=== PATIENT | female | born 1940 | race Caucasian/White ===

== ENCOUNTER → 2017-09-30 | Outpatient (CLI) | payer MEDICARE ==
[~2017-09-30] MED LIST: ASPI-496 PO; ATOR20TA PO; CHOL100015 PO; CLOP75TA52 PO; DIGO125T PO; DOXY100C2 PO; EYE VITAMINS PO; FLUT1BLS INH; FLUT1DIS3 INH; ISOS30TA8 PO; MOME13HF2 INH; NITR0.4T SL; TIOT18CA INH; TIOT4MIS3 INH; TRAM50TA2 PO; [UNRECOGNIZED DRUG - CODE] PO
== END | disposition home or self-care (01) ==
LOC: CVU 08:50
PROVIDERS: ATTEND Internal Medicine Cardiovascular Disease
DX: I70.202 Unspecified atherosclerosis of native arteries of extremities, left leg (principal); I70.203 Unspecified atherosclerosis of native arteries of extremities, bilateral legs; I73.9 Peripheral vascular disease, unspecified
CPT/HCPCS: 93880; 93922; 93925

== ENCOUNTER → 2018-01-26 | Outpatient (CLI) | payer MEDICARE ==
[~2018-01-26] MED LIST changes: +REGADENOSON 0.4 MG/5 ML SYRINGE ONE
== END ==
LOC: RAD 12:11
PROVIDERS: ATTEND Internal Medicine Cardiovascular Disease
DX: I10 Essential (primary) hypertension (principal); J44.9 Chronic obstructive pulmonary disease, unspecified; I73.9 Peripheral vascular disease, unspecified
CPT/HCPCS: 78452; 93017; A9502; J2785

== ENCOUNTER → 2018-02-16 | Outpatient (CLI) | payer MEDICARE ==
[~2018-02-16] MED LIST changes: +OMNIPAQUE 350 MG/ML, 100ML BOTTLE ONE; -REGADENOSON 0.4 MG/5 ML SYRINGE ONE
[2018-02-16 15:36] LABS: BASOPHILS # (AUTO) 0.04 x10^3/uL (0-0.1); BASOPHILS % (AUTO) 1 % (0-1); EOSINOPHILS # (AUTO) 0.09 x10^3/uL (0-0.4); EOSINOPHILS % (AUTO) 1 % (1-7); HCT (SEDRATE) 43.5 % (34.6-47.8); LYMPHOCYTES # (AUTO) 1.49 x10^3/uL (1-3.4); LYMPHOCYTES % (AUTO) 20 % (22-44); MD NO; MEAN CORPUSCULAR HEMOGLOBIN 30.1 pg (27.0-34.8); MEAN CORPUSCULAR HGB CONC 32.3 g/dL (32.4-35.8); MEAN CORPUSCULAR VOLUME 93.2 fL (80-100); MEAN PLATELET VOLUME 9.4 fL (7.4-10.4); MONOCYTES # (AUTO) 0.62 x10^3/uL (0.2-0.8); MONOCYTES % (AUTO) 8 % (2-9); NEUTROPHILS # (AUTO) 5.21 x10^3/uL (1.8-6.8); NEUTROPHILS % (AUTO) 70 % (42-75); PLATELET COUNT 213 x10^3/uL (130-400); RED BLOOD COUNT 4.69 x10^6/uL (3.82-5.3); RED CELL DISTRIBUTION WIDTH 15.5 % (9.6-15.2)
[2018-02-16 15:50] LABS: ALBUMIN 3.6 g/dL (3.4-5.0); ANION GAP 7 mmol/L (5-15); CALCIUM 8.7 mg/dL (8.5-10.1); CHLORIDE 108 mmol/L (98-107)
[2018-02-16 15:53] LABS: ALANINE AMINOTRANSFERASE 36 U/L (12-78); ALKALINE PHOSPHATASE 76 U/L (45-117); BILIRUBIN,TOTAL 0.7 mg/dL (0.2-1.0); C-REACTIVE PROTEIN, QUANT 0.08 mg/dL (0.02-0.49); CREATININE 0.75 mg/dL (0.55-1.02); TOTAL PROTEIN 6.5 g/dL (6.4-8.2)
== END | disposition home or self-care (01) ==
LOC: CFH 12:48
PROVIDERS: ATTEND Ophthalmology
DX: H46.9 Unspecified optic neuritis (principal)
CPT/HCPCS: 36415; 70470; 80053; 82565; 85025; 85651; 86140; Q9967

== ENCOUNTER → 2018-03-02 | Outpatient (CLI) | payer MEDICARE ==
[~2018-03-02] MED LIST changes: -OMNIPAQUE 350 MG/ML, 100ML BOTTLE ONE
== END | disposition home or self-care (01) ==
LOC: CFH 12:40
PROVIDERS: ATTEND Registered Nurse
DX: Z12.2 Encounter for screening for malignant neoplasm of respiratory organs (principal); I25.10 Atherosclerotic heart disease of native coronary artery without angina pectoris; Z87.891 Personal history of nicotine dependence
CPT/HCPCS: G0297

== ENCOUNTER → 2018-05-15 | Outpatient (CLI) | payer MEDICARE ==
[~2018-05-15] MED LIST changes: +ACET325T14 PO; +ALEN70TA3 PO; +CYCL5TAB PO; +LIDO700A20 TD; +OMNIPAQUE 350 MG/ML, 100ML BOTTLE ONE; +RIVA20TA PO; +SENN1TAB8 PO
== END | disposition home or self-care (01) ==
LOC: CFH 14:33
PROVIDERS: ATTEND Ophthalmology
DX: H46.9 Unspecified optic neuritis (principal); I50.9 Heart failure, unspecified; J44.9 Chronic obstructive pulmonary disease, unspecified; Z86.73 Personal history of transient ischemic attack (TIA), and cerebral infarction without residual deficits; Z85.89 Personal history of malignant neoplasm of other organs and systems
CPT/HCPCS: 70470; 82565; Q9967

== ENCOUNTER 2018-07-04 14:05 | Inpatient (IN) | payer MEDICARE ==
[~2018-07-04] VITALS: Ht 154.9 cm; Wt 41.0 kg
[~2018-07-04 14:05] MED LIST changes: -ACET325T14 PO; -ALEN70TA3 PO; -CYCL5TAB PO; -LIDO700A20 TD; -OMNIPAQUE 350 MG/ML, 100ML BOTTLE ONE; -RIVA20TA PO; -SENN1TAB8 PO
[2018-07-04 15:40] LABS: BASOPHILS # (AUTO) 0.09 x10^3/uL (0-0.1); BASOPHILS % (AUTO) 1 % (0-1); EOSINOPHILS # (AUTO) 0.11 x10^3/uL (0-0.4); EOSINOPHILS % (AUTO) 1 % (1-7); LYMPHOCYTES % (AUTO) 16 % (22-44); MD NO; MEAN CORPUSCULAR HGB CONC 32.8 g/dL (32.4-35.8); MEAN CORPUSCULAR VOLUME 91.5 fL (80-100); MEAN PLATELET VOLUME 8.5 fL (7.4-10.4); MONOCYTES % (AUTO) 7 % (2-9); NEUTROPHILS # (AUTO) 8.67 x10^3/uL (1.8-6.8); NEUTROPHILS % (AUTO) 76 % (42-75); PLATELET COUNT 314 x10^3/uL (130-400); RED BLOOD COUNT 4.81 x10^6/uL (3.82-5.3); RED CELL DISTRIBUTION WIDTH 15.2 % (9.6-15.2)
[2018-07-04 15:52] LABS: ALANINE AMINOTRANSFERASE 24 U/L (12-78); ALBUMIN 3.1 g/dL (3.4-5.0); ANION GAP 6 mmol/L (5-15); CALCIUM 8.6 mg/dL (8.5-10.1); CHLORIDE 107 mmol/L (98-107); CREATININE 0.76 mg/dL (0.55-1.02)
[2018-07-04 15:54] LABS: ALKALINE PHOSPHATASE 103 U/L (45-117); BILIRUBIN,TOTAL 0.6 mg/dL (0.2-1.0); TOTAL PROTEIN 6.3 g/dL (6.4-8.2)
[2018-07-04] MEDS ORDERED: ONDANSETRON ODT 4 MG PO PRN ×2 (16:00→18:30)
[2018-07-04] MEDS ORDERED: HYDROmorphone 2 MG/ML, 1ML IVPush PRN (16:00)
[2018-07-04] MEDS ORDERED: HYDROmorphone 2 MG/ML, 1ML ONE (16:14)
[2018-07-04] MEDS ORDERED: ONDANSETRON ODT 4 MG ONE (16:14)
[2018-07-04 17:08] LABS: MICROSCOPIC INDICATED
[2018-07-04 17:12] LABS: CULTURE INDICATED? YES
[2018-07-04] MEDS ORDERED: ALEN70TA3 PO (17:21)
[2018-07-04] MEDS ORDERED: RIVA20TA PO (17:21)
[2018-07-04] MEDS ORDERED: OMNIPAQUE 350 MG/ML, 100ML BOTTLE ONE (18:13)
[2018-07-04] MEDS ORDERED: NITROGLYCERIN 0.4 MG BOTTLE (25 TABS) SL PRN (18:30)
[2018-07-04] MEDS ORDERED: POLYETHYLENE GLYCOL 17 GM PACKET PO PRN (18:30)
[2018-07-04] MEDS ORDERED: ACETAMINOPHEN 325 MG TABLET PO PRN (18:30)
[2018-07-04] MEDS ORDERED: BISACODYL 10 MG SUPP PR PRN (18:30)
[2018-07-04] MEDS ORDERED: IPRATROPIUM 0.5 MG/2.5 ML INHA NPPB PRN (19:00)
[2018-07-04 19:10] LABS: INTERNATIONAL NORMALIZED RATIO 1.07 (0.93-1.1); PROTHROMBIN TIME 11.1 Seconds (9.6-11.5)
[2018-07-04 19:52] VITALS: BP 105/55
[2018-07-04 19:55] VITALS: BP 95/60
[2018-07-04] MEDS ORDERED: RIVAROXABAN 20 MG TABLET PO SCH (21:00)
[2018-07-04] MEDS ORDERED: IPRATROPIUM 0.5 MG/2.5 ML INHA NPPB SCH (21:00)
[2018-07-04] MEDS: DIGOXIN 0.125 MG TABLET PO SCH (21:03)
[2018-07-04] MEDS: HYDROmorphone 2 MG/ML, 1ML IVPush PRN (21:03)
[2018-07-04] MEDS: ATORVASTATIN 20 MG TABLET PO SCH (21:03)
[2018-07-04] MEDS: SODIUM CHLORIDE FLUSH 10ML SYR IVF SCH (21:10)
[2018-07-04] MEDS: IPRATROPIUM 0.5 MG/2.5 ML INHA NPPB SCH (22:00)
[2018-07-05 02:04] VITALS: BP 114/68
[2018-07-05] MEDS: HYDROmorphone 2 MG/ML, 1ML IVPush PRN ×3 (02:17→19:29)
[2018-07-05] MEDS: IPRATROPIUM 0.5 MG/2.5 ML INHA NPPB SCH ×2 (03:30→09:25)
[2018-07-05 05:26] LABS: BASOPHILS # (AUTO) 0.03 x10^3/uL (0-0.1); BASOPHILS % (AUTO) 0 % (0-1); EOSINOPHILS # (AUTO) 0.18 x10^3/uL (0-0.4); EOSINOPHILS % (AUTO) 2 % (1-7); LYMPHOCYTES # (AUTO) 1.92 x10^3/uL (1-3.4); LYMPHOCYTES % (AUTO) 20 % (22-44); MD NO; MEAN CORPUSCULAR HEMOGLOBIN 30.7 pg (27.0-34.8); MEAN CORPUSCULAR HGB CONC 33.4 g/dL (32.4-35.8); MEAN CORPUSCULAR VOLUME 91.9 fL (80-100); MONOCYTES # (AUTO) 0.77 x10^3/uL (0.2-0.8); MONOCYTES % (AUTO) 8 % (2-9); NEUTROPHILS % (AUTO) 71 % (42-75); PLATELET COUNT 267 x10^3/uL (130-400); RED BLOOD COUNT 4.51 x10^6/uL (3.82-5.3); RED CELL DISTRIBUTION WIDTH 15.3 % (9.6-15.2)
[2018-07-05 05:28] LABS: CHLORIDE 104 mmol/L (98-107)
[2018-07-05 05:40] LABS: ALANINE AMINOTRANSFERASE 25 U/L (12-78); ALKALINE PHOSPHATASE 110 U/L (45-117); ANION GAP 9 mmol/L (5-15); BILIRUBIN,TOTAL 0.2 mg/dL (0.2-1.0); CREATININE 0.84 mg/dL (0.55-1.02)
[2018-07-05 07:44] VITALS: BP 102/64
[2018-07-05] MEDS: FERROUS SULFATE 325 MG TABLET PO SCH (08:09)
[2018-07-05] MEDS: SODIUM CHLORIDE FLUSH 10ML SYR IVF SCH ×2 (08:09→21:17)
[2018-07-05] MEDS: SENNA/DOCUSATE TABLET PO SCH (08:09)
[2018-07-05] MEDS: ISOSORBIDE MONONITRATE ER 30 MG TABLET PO SCH (08:09)
[2018-07-05] MEDS ORDERED: FUROSEMIDE 20 MG/2 ML ONE (09:48)
[2018-07-05] MEDS ORDERED: HEPARIN 25,000 UNITS/500ML PMX 500 ML IV PRN (13:00)
[2018-07-05 13:37] VITALS: BP 90/50
[2018-07-05] MEDS ORDERED: SODIUM CHLORIDE 0.45% 1,000 ML IV SCH (14:00)
[2018-07-05] MEDS ORDERED: SODIUM CHLORIDE 0.9% 1,000 ML IV SCH (14:30)
[2018-07-05] MEDS: ALBUTEROL/IPRATROPIUM 2.5MG/0.5MG, 3 ML HHN SCH ×2 (15:54→20:22)
[2018-07-05] MEDS: HEPARIN 25,000 UNITS/500ML PMX 500 ML IV PRN (15:58)
[2018-07-05] MEDS: CARVEDILOL 3.125 MG TABLET PO SCH (18:00)
[2018-07-05 19:20] VITALS: BP 100/64
[2018-07-05] MEDS ORDERED: HEPARIN 5,000 UNITS/ML, 1ML IV PRN (20:00)
[2018-07-05] MEDS ORDERED: HEPARIN 5,000 UNITS/ML, 1ML IV ONE (20:00)
[2018-07-05] MEDS ORDERED: ASPIRIN 81 MG TABLET CHEW PO SCH (21:00)
[2018-07-05] MEDS: DIGOXIN 0.125 MG TABLET PO SCH (21:17)
[2018-07-05] MEDS: ATORVASTATIN 20 MG TABLET PO SCH (21:17)
[2018-07-06 01:14] VITALS: BP 109/66
[2018-07-06] MEDS: ALBUTEROL/IPRATROPIUM 2.5MG/0.5MG, 3 ML HHN SCH ×5 (02:19→20:40)
[2018-07-06] MEDS: SODIUM CHLORIDE 0.9% 1,000 ML IV SCH ×3 (02:38→23:03)
[2018-07-06 05:00] LABS: BASOPHILS # (AUTO) 0.08 x10^3/uL (0-0.1); BASOPHILS % (AUTO) 1 % (0-1); EOSINOPHILS # (AUTO) 0.13 x10^3/uL (0-0.4); EOSINOPHILS % (AUTO) 2 % (1-7); LYMPHOCYTES # (AUTO) 1.85 x10^3/uL (1-3.4); LYMPHOCYTES % (AUTO) 23 % (22-44); MD NO; MEAN CORPUSCULAR HEMOGLOBIN 30.7 pg (27.0-34.8); MEAN CORPUSCULAR VOLUME 92.8 fL (80-100); MEAN PLATELET VOLUME 9.2 fL (7.4-10.4); MONOCYTES # (AUTO) 0.77 x10^3/uL (0.2-0.8); MONOCYTES % (AUTO) 9 % (2-9); NEUTROPHILS # (AUTO) 5.31 x10^3/uL (1.8-6.8); NEUTROPHILS % (AUTO) 65 % (42-75); PLATELET COUNT 243 x10^3/uL (130-400); RED BLOOD COUNT 4.16 x10^6/uL (3.82-5.3); RED CELL DISTRIBUTION WIDTH 15.1 % (9.6-15.2)
[2018-07-06 05:01] LABS: ALBUMIN 2.7 g/dL (3.4-5.0); ANION GAP 5 mmol/L (5-15); CALCIUM 8.4 mg/dL (8.5-10.1); CHLORIDE 109 mmol/L (98-107)
[2018-07-06 05:04] LABS: ALANINE AMINOTRANSFERASE 21 U/L (12-78); ALKALINE PHOSPHATASE 85 U/L (45-117); BILIRUBIN,TOTAL 0.6 mg/dL (0.2-1.0); CREATININE 0.69 mg/dL (0.55-1.02); TOTAL PROTEIN 5.6 g/dL (6.4-8.2)
[2018-07-06] MEDS: CARVEDILOL 3.125 MG TABLET PO SCH ×2 (05:51→17:58)
[2018-07-06 08:08] VITALS: BP 112/74
[2018-07-06] MEDS: HYDROmorphone 2 MG/ML, 1ML IVPush PRN ×3 (08:21→20:32)
[2018-07-06] MEDS: SODIUM CHLORIDE FLUSH 10ML SYR IVF SCH ×2 (09:00→20:31)
[2018-07-06] MEDS ORDERED: ALENDRONATE 70 MG TABLET PO SCH (09:00)
[2018-07-06] MEDS: FERROUS SULFATE 325 MG TABLET PO SCH (10:47)
[2018-07-06] MEDS: ISOSORBIDE MONONITRATE ER 30 MG TABLET PO SCH (10:47)
[2018-07-06] MEDS: SENNA/DOCUSATE TABLET PO SCH (10:48)
[2018-07-06 12:19] VITALS: BP 92/58
[2018-07-06] MEDS ORDERED: ERGOCALCIFEROL 50,000 UNIT CAPSULE PO SCH (18:30)
[2018-07-06 19:16] VITALS: BP 95/61
[2018-07-06] MEDS: ATORVASTATIN 20 MG TABLET PO SCH (20:30)
[2018-07-06] MEDS: DIGOXIN 0.125 MG TABLET PO SCH (20:30)
[2018-07-06] MEDS: HEPARIN 25,000 UNITS/500ML PMX 500 ML IV PRN (21:43)
[2018-07-07 00:39] VITALS: BP 105/64
[2018-07-07] MEDS: ALBUTEROL/IPRATROPIUM 2.5MG/0.5MG, 3 ML HHN SCH ×4 (02:54→19:52)
[2018-07-07 05:49] LABS: CHLORIDE 113 mmol/L (98-107)
[2018-07-07] MEDS: CARVEDILOL 3.125 MG TABLET PO SCH ×2 (06:00→18:46)
[2018-07-07 06:09] LABS: ALANINE AMINOTRANSFERASE 19 U/L (12-78); ALBUMIN 2.5 g/dL (3.4-5.0); ALKALINE PHOSPHATASE 75 U/L (45-117); ANION GAP 6 mmol/L (5-15); BILIRUBIN,TOTAL 0.3 mg/dL (0.2-1.0); CALCIUM 7.6 mg/dL (8.5-10.1); CREATININE 0.64 mg/dL (0.55-1.02); TOTAL PROTEIN 5.1 g/dL (6.4-8.2)
[2018-07-07 07:20] VITALS: BP 108/57
[2018-07-07] MEDS: HYDROmorphone 2 MG/ML, 1ML IVPush PRN ×2 (08:50→14:13)
[2018-07-07] MEDS: SODIUM CHLORIDE FLUSH 10ML SYR IVF SCH ×2 (09:00→22:16)
[2018-07-07] MEDS ORDERED: NALOXONE 1 MG/ML, 2ML ONE (11:09)
[2018-07-07] MEDS ORDERED: FENTANYL PF 100 MCG/2ML ONE ×2 (11:09)
[2018-07-07] MEDS ORDERED: FLUMAZENIL 0.1 MG/1 ML, 5ML ONE (11:09)
[2018-07-07] MEDS ORDERED: MIDAZOLAM 1 MG/ML, 5ML ONE (11:09)
[2018-07-07] MEDS ORDERED: LIDOCAINE-MPF 2%, 2ML ONE (11:10)
[2018-07-07] MEDS ORDERED: MAGNESIUM CITRATE 300ML ORAL SOL PO ONE (11:30)
[2018-07-07] MEDS ORDERED: VISIPAQUE 270 MG/ML, 50ML BOTTLE ONE (12:39)
[2018-07-07 13:42] VITALS: BP 123/64
[2018-07-07] MEDS: SODIUM CHLORIDE 0.9% 1,000 ML IV SCH (14:11)
[2018-07-07] MEDS: MAGNESIUM HYDROXIDE 8%, 30ML UDC PO SCH (14:11)
[2018-07-07] MEDS: ISOSORBIDE MONONITRATE ER 30 MG TABLET PO SCH (14:12)
[2018-07-07] MEDS: FERROUS SULFATE 325 MG TABLET PO SCH (14:12)
[2018-07-07] MEDS: SENNA/DOCUSATE TABLET PO SCH (14:12)
[2018-07-07 20:00] VITALS: BP 100/63
[2018-07-07] MEDS ORDERED: RIVAROXABAN 20 MG TABLET PO SCH (21:00)
[2018-07-07] MEDS: ATORVASTATIN 20 MG TABLET PO SCH (22:15)
[2018-07-07] MEDS: DIGOXIN 0.125 MG TABLET PO SCH (22:16)
[2018-07-08] MEDS: HYDROmorphone 2 MG/ML, 1ML IVPush PRN ×2 (01:29→08:42)
[2018-07-08] MEDS: SODIUM CHLORIDE 0.9% 1,000 ML IV SCH (01:33)
[2018-07-08 02:00] VITALS: BP 135/78
[2018-07-08] MEDS: ALBUTEROL/IPRATROPIUM 2.5MG/0.5MG, 3 ML HHN SCH ×4 (02:14→19:27)
[2018-07-08] MEDS: CARVEDILOL 3.125 MG TABLET PO SCH ×2 (05:35→18:33)
[2018-07-08 07:27] VITALS: BP 131/71
[2018-07-08] MEDS: MAGNESIUM HYDROXIDE 8%, 30ML UDC PO SCH (08:41)
[2018-07-08] MEDS: SENNA/DOCUSATE TABLET PO SCH (08:41)
[2018-07-08] MEDS: FERROUS SULFATE 325 MG TABLET PO SCH (08:41)
[2018-07-08] MEDS: ISOSORBIDE MONONITRATE ER 30 MG TABLET PO SCH (08:41)
[2018-07-08] MEDS: SODIUM CHLORIDE FLUSH 10ML SYR IVF SCH (08:46)
[2018-07-08 13:24] VITALS: BP 106/66
[2018-07-08] MEDS ORDERED: MAGNESIUM CITRATE 300ML ORAL SOL PO ONE (14:30)
[2018-07-08] MEDS ORDERED: CYCLOBENZAPRINE 10 MG TABLET PO PRN (14:30)
[2018-07-08 18:28] VITALS: BP 108/72
[2018-07-08] MEDS: LIDODERM 5% PATCH TD SCH (18:33)
[2018-07-08 20:00] VITALS: BP 105/71
[2018-07-08] MEDS: ATORVASTATIN 20 MG TABLET PO SCH (20:03)
[2018-07-08] MEDS: DIGOXIN 0.125 MG TABLET PO SCH (20:04)
[2018-07-08] MEDS: RIVAROXABAN 20 MG TABLET PO SCH (20:04)
[2018-07-08 22:07] LABS: MICROSCOPIC INDICATED
[2018-07-09] MEDS: HYDROmorphone 2 MG/ML, 1ML IVPush PRN (00:04)
[2018-07-09] MEDS: SODIUM CHLORIDE FLUSH 10ML SYR IVF SCH ×3 (00:04→19:44)
[2018-07-09 02:00] VITALS: BP 95/61
[2018-07-09] MEDS: ALBUTEROL/IPRATROPIUM 2.5MG/0.5MG, 3 ML HHN SCH ×4 (03:05→20:01)
[2018-07-09] MEDS: CARVEDILOL 3.125 MG TABLET PO SCH ×2 (05:24→18:00)
[2018-07-09 07:24] VITALS: BP 94/60
[2018-07-09] MEDS ORDERED: CYCLOBENZAPRINE 10 MG TABLET PO PRN (08:30)
[2018-07-09] MEDS: FERROUS SULFATE 325 MG TABLET PO SCH (09:03)
[2018-07-09] MEDS: ISOSORBIDE MONONITRATE ER 30 MG TABLET PO SCH (09:03)
[2018-07-09] MEDS: SENNA/DOCUSATE TABLET PO SCH (09:04)
[2018-07-09] MEDS: MAGNESIUM HYDROXIDE 8%, 30ML UDC PO SCH (09:04)
[2018-07-09 12:15] VITALS: BP 89/52
[2018-07-09] MEDS ORDERED: SODIUM CHLORIDE 0.9%, 500ML IVBOLUS ONE (12:30)
[2018-07-09] MEDS: OXYcodone/APAP 5/325MG TABLET PO PRN (13:26)
[2018-07-09 14:25] VITALS: BP 111/60
[2018-07-09] MEDS ORDERED: ALBUTEROL/IPRATROPIUM 2.5MG/0.5MG, 3 ML ONE (15:30)
[2018-07-09 15:44] VITALS: BP 116/68
[2018-07-09 19:02] VITALS: BP 99/64
[2018-07-09] MEDS: RIVAROXABAN 20 MG TABLET PO SCH (19:43)
[2018-07-09] MEDS: ATORVASTATIN 20 MG TABLET PO SCH (19:43)
[2018-07-09] MEDS: LIDODERM 5% PATCH TD SCH (19:43)
[2018-07-09] MEDS: DIGOXIN 0.125 MG TABLET PO SCH (19:43)
[2018-07-10] VITALS (10 sets, daily range): BP systolic 69–122; BP diastolic 35–71
[2018-07-10] MEDS: ALBUTEROL/IPRATROPIUM 2.5MG/0.5MG, 3 ML HHN SCH ×4 (03:00→22:10)
[2018-07-10] MEDS: CARVEDILOL 3.125 MG TABLET PO SCH (05:12)
[2018-07-10] MEDS: MAGNESIUM HYDROXIDE 8%, 30ML UDC PO SCH (08:23)
[2018-07-10] MEDS: SENNA/DOCUSATE TABLET PO SCH (08:24)
[2018-07-10] MEDS: FERROUS SULFATE 325 MG TABLET PO SCH (08:38)
[2018-07-10] MEDS: OXYcodone/APAP 5/325MG TABLET PO PRN ×2 (08:38→21:34)
[2018-07-10] MEDS: ISOSORBIDE MONONITRATE ER 30 MG TABLET PO SCH (08:43)
[2018-07-10 08:49] LABS: BASOPHILS # (AUTO) 0.05 x10^3/uL (0-0.1); BASOPHILS % (AUTO) 1 % (0-1); EOSINOPHILS # (AUTO) 0.17 x10^3/uL (0-0.4); EOSINOPHILS % (AUTO) 2 % (1-7); LYMPHOCYTES # (AUTO) 1.38 x10^3/uL (1-3.4); LYMPHOCYTES % (AUTO) 18 % (22-44); MD NO; MEAN CORPUSCULAR HEMOGLOBIN 30.6 pg (27.0-34.8); MEAN CORPUSCULAR HGB CONC 33.4 g/dL (32.4-35.8); MEAN CORPUSCULAR VOLUME 91.6 fL (80-100); MEAN PLATELET VOLUME 8.7 fL (7.4-10.4); MONOCYTES # (AUTO) 0.62 x10^3/uL (0.2-0.8); MONOCYTES % (AUTO) 8 % (2-9); NEUTROPHILS # (AUTO) 5.44 x10^3/uL (1.8-6.8); NEUTROPHILS % (AUTO) 71 % (42-75); PLATELET COUNT 221 x10^3/uL (130-400); RED BLOOD COUNT 4.62 x10^6/uL (3.82-5.3); RED CELL DISTRIBUTION WIDTH 15.1 % (9.6-15.2)
[2018-07-10] MEDS: SODIUM CHLORIDE FLUSH 10ML SYR IVF SCH ×2 (09:00→20:37)
[2018-07-10] MEDS: CEFTRIAXONE 500 MG in DEXTROSE 5% 50 ML IV SCH (10:58)
[2018-07-10] MEDS ORDERED: SODIUM CHLORIDE 0.9% 1,000ML IVBOLUS ONE ×2 (11:00→17:00)
[2018-07-10] MEDS: ATORVASTATIN 20 MG TABLET PO SCH (20:37)
[2018-07-10] MEDS: DIGOXIN 0.125 MG TABLET PO SCH (20:38)
[2018-07-10] MEDS: LIDODERM 5% PATCH TD SCH (20:44)
[2018-07-11 00:06] VITALS: BP 107/54
[2018-07-11] MEDS: ALBUTEROL/IPRATROPIUM 2.5MG/0.5MG, 3 ML HHN SCH ×3 (04:00→14:52)
[2018-07-11 07:05] VITALS: BP 94/52
[2018-07-11] MEDS: MAGNESIUM HYDROXIDE 8%, 30ML UDC PO SCH (07:45)
[2018-07-11] MEDS ORDERED: LIDODERM 5% PATCH TD SCH (08:00)
[2018-07-11] MEDS: FERROUS SULFATE 325 MG TABLET PO SCH (08:55)
[2018-07-11] MEDS: SENNA/DOCUSATE TABLET PO SCH (08:55)
[2018-07-11] MEDS: SODIUM CHLORIDE FLUSH 10ML SYR IVF SCH (08:56)
[2018-07-11] MEDS: OXYcodone/APAP 5/325MG TABLET PO PRN (09:16)
[2018-07-11] MEDS: CEFTRIAXONE 500 MG in DEXTROSE 5% 50 ML IV SCH (11:55)
[2018-07-11 13:05] VITALS: BP 112/71
[2018-07-11] MEDS ORDERED: SENN1TAB8 PO (15:09)
[2018-07-11] MEDS ORDERED: LIDO700A20 TD (15:09)
[2018-07-11] MEDS ORDERED: ACET325T14 PO (15:09)
[2018-07-11] MEDS ORDERED: CYCL5TAB PO (15:09)
== END 2018-07-11 17:32 | disposition home health service (06) | DRG 694 ==
LOC: ED 16:05 → EDIP 17:27 → 4WST 19:02 → 3NE 20:13 → 4WST 07-07 16:04
PROVIDERS: ADMIT Hospitalist; ATTEND Hospitalist
PROC: 5A09357 Assistance with Respiratory Ventilation, Less than 24 Consecutive Hours, Continuous Positive Airway Pressure (ICD-10-PCS; 2018-07-05)
PROC: 5A09357 Assistance with Respiratory Ventilation, Less than 24 Consecutive Hours, Continuous Positive Airway Pressure (ICD-10-PCS; 2018-07-06)
PROC: 0T9030Z Drainage of Right Kidney with Drainage Device, Percutaneous Approach (ICD-10-PCS; principal; 2018-07-07)
PROC: 5A09357 Assistance with Respiratory Ventilation, Less than 24 Consecutive Hours, Continuous Positive Airway Pressure (ICD-10-PCS; 2018-07-07)
PROC: 5A09357 Assistance with Respiratory Ventilation, Less than 24 Consecutive Hours, Continuous Positive Airway Pressure (ICD-10-PCS; 2018-07-08)
PROC: 5A09357 Assistance with Respiratory Ventilation, Less than 24 Consecutive Hours, Continuous Positive Airway Pressure (ICD-10-PCS; 2018-07-10)
PROC: 5A09357 Assistance with Respiratory Ventilation, Less than 24 Consecutive Hours, Continuous Positive Airway Pressure (ICD-10-PCS; 2018-07-11)
DX: N13.1 Hydronephrosis with ureteral stricture, not elsewhere classified (principal); E44.0 Moderate protein-calorie malnutrition; D68.69 Other thrombophilia; Z68.1 Body mass index [BMI] 19.9 or less, adult; M51.36 Other intervertebral disc degeneration, lumbar region; N23 Unspecified renal colic; I25.2 Old myocardial infarction; I25.10 Atherosclerotic heart disease of native coronary artery without angina pectoris; I73.9 Peripheral vascular disease, unspecified; G47.33 Obstructive sleep apnea (adult) (pediatric); M81.0 Age-related osteoporosis without current pathological fracture; F17.210 Nicotine dependence, cigarettes, uncomplicated; E78.5 Hyperlipidemia, unspecified; I48.91 Unspecified atrial fibrillation; J44.9 Chronic obstructive pulmonary disease, unspecified; K59.00 Constipation, unspecified; M40.209 Unspecified kyphosis, site unspecified; M54.30 Sciatica, unspecified side; Z79.01 Long term (current) use of anticoagulants; Z79.83 Long term (current) use of bisphosphonates; Z82.49 Family history of ischemic heart disease and other diseases of the circulatory system; Z82.5 Family history of asthma and other chronic lower respiratory diseases; Z86.73 Personal history of transient ischemic attack (TIA), and cerebral infarction without residual deficits; Z90.710 Acquired absence of both cervix and uterus; Z95.0 Presence of cardiac pacemaker; Z98.1 Arthrodesis status; I95.9 Hypotension, unspecified; R31.9 Hematuria, unspecified; I51.89 Other ill-defined heart diseases
CPT/HCPCS: 36415; 50432; 71045; 72131; 74018; 74176; 74177; 76942; 78708; 80053; 80162; 81001; 83605; 83690; 85025; 85520; 85610; 85730; 87086; 93005; 94640; 94660; 99156; 99157; C1894; G0378; J0696; J1170; J1644; J2250; J3010; J3490; J7620; J7644; Q0162; Q9966; Q9967; A9562; C1729; C1769; C9898; J1940; J2310; J7030; J7040

== ENCOUNTER → 2018-07-29 | Outpatient (CLI) | payer MEDICARE ==
[~2018-07-29] MED LIST changes: +ACET325T14 PO; +ALEN70TA3 PO; +CYCL5TAB PO; +LIDO700A20 TD; +RIVA20TA PO; +SENN1TAB8 PO
== END | disposition home or self-care (01) ==
LOC: CFH 08:49
PROVIDERS: ATTEND Urology
DX: N13.30 Unspecified hydronephrosis (principal); J44.9 Chronic obstructive pulmonary disease, unspecified; Z87.891 Personal history of nicotine dependence
CPT/HCPCS: 76770

== ENCOUNTER → 2018-09-25 | Outpatient (CLI) | payer MEDICARE ==
[~2018-09-25] MED LIST changes: +ERGO500017 PO; +FERR-51 PO; +HYDR-3240 PO
[2018-09-25 11:19] LABS: BASOPHILS # (AUTO) 0.05 x10^3/uL (0-0.1); BASOPHILS % (AUTO) 1 % (0-1); EOSINOPHILS # (AUTO) 0.13 x10^3/uL (0-0.4); EOSINOPHILS % (AUTO) 2 % (1-7); LYMPHOCYTES # (AUTO) 1.77 x10^3/uL (1-3.4); LYMPHOCYTES % (AUTO) 23 % (22-44); MD NO; MEAN CORPUSCULAR HEMOGLOBIN 30.2 pg (27.0-34.8); MEAN CORPUSCULAR HGB CONC 32.7 g/dL (32.4-35.8); MEAN CORPUSCULAR VOLUME 92.4 fL (80-100); MEAN PLATELET VOLUME 8.8 fL (7.4-10.4); MONOCYTES # (AUTO) 0.76 x10^3/uL (0.2-0.8); MONOCYTES % (AUTO) 10 % (2-9); NEUTROPHILS # (AUTO) 4.89 x10^3/uL (1.8-6.8); NEUTROPHILS % (AUTO) 64 % (42-75); PLATELET COUNT 187 x10^3/uL (130-400); RED BLOOD COUNT 4.45 x10^6/uL (3.82-5.3); RED CELL DISTRIBUTION WIDTH 15.1 % (9.6-15.2)
[2018-09-25 11:32] LABS: CHLORIDE 107 mmol/L (98-107)
[2018-09-25 11:37] LABS: ANION GAP 7 mmol/L (5-15); CREATININE 0.66 mg/dL (0.55-1.02)
== END | disposition home or self-care (01) ==
LOC: STAR 10:24
PROVIDERS: ATTEND Internal Medicine Cardiovascular Disease
DX: Z01.818 Encounter for other preprocedural examination (principal); J44.0 Chronic obstructive pulmonary disease with (acute) lower respiratory infection; I48.0 Paroxysmal atrial fibrillation; I10 Essential (primary) hypertension; T82.198S Other mechanical complication of other cardiac electronic device, sequela
CPT/HCPCS: 36415; 71046; 80048; 85025

== ENCOUNTER 2018-09-30 08:33 | Inpatient (IN) | payer MEDICARE ==
[2018-09-25 11:36] VITALS: BP 112/69
[~2018-09-30] VITALS: Ht 154.9 cm; Wt 42.3 kg
[~2018-09-30 08:33] MED LIST changes: -HYDR-3240 PO
[2018-09-30] MEDS: SODIUM CHLORIDE 0.9% 1,000 ML IV SCH ×2 (08:39→16:39)
[2018-09-30] MEDS ORDERED: FENTANYL PF 100 MCG/2ML ONE ×2 (11:05→13:23)
[2018-09-30] MEDS ORDERED: LIDOCAINE/PF 1%, 30ML ONE (11:05)
[2018-09-30] MEDS ORDERED: MIDAZOLAM 1 MG/ML, 2ML ONE (11:05)
[2018-09-30] MEDS ORDERED: CEFAZOLIN 1,000 MG ONE (11:06)
[2018-09-30] MEDS ORDERED: PROPOFOL 10 MG/ML, 20ML ONE (13:31)
[2018-09-30] MEDS ORDERED: PROPOFOL 10 MG/ML, 50ML ONE (13:31)
[2018-09-30] MEDS ORDERED: HOLD MEDICATION MC PRN (15:30)
[2018-09-30] MEDS ORDERED: ERGOCALCIFEROL 50,000 UNIT CAPSULE PO SCH (15:30)
[2018-09-30] MEDS ORDERED: ACETAMINOPHEN 325 MG TABLET PO PRN (15:30)
[2018-09-30] MEDS ORDERED: EPHEDRINE 50 MG/ML, 1ML ONE (16:06)
[2018-09-30] MEDS: EPHEDRINE 50 MG/ML, 1ML IVPush PRN ×3 (16:08→17:58)
[2018-09-30 16:31] LABS: BASOPHILS # (AUTO) 0.04 x10^3/uL (0-0.1); BASOPHILS % (AUTO) 1 % (0-1); EOSINOPHILS # (AUTO) 0.08 x10^3/uL (0-0.4); EOSINOPHILS % (AUTO) 1 % (1-7); LYMPHOCYTES # (AUTO) 1.75 x10^3/uL (1-3.4); LYMPHOCYTES % (AUTO) 29 % (22-44); MD NO; MEAN CORPUSCULAR HEMOGLOBIN 30.6 pg (27.0-34.8); MEAN CORPUSCULAR HGB CONC 33.1 g/dL (32.4-35.8); MEAN CORPUSCULAR VOLUME 92.3 fL (80-100); MEAN PLATELET VOLUME 8.6 fL (7.4-10.4); MONOCYTES # (AUTO) 0.59 x10^3/uL (0.2-0.8); MONOCYTES % (AUTO) 10 % (2-9); NEUTROPHILS # (AUTO) 3.52 x10^3/uL (1.8-6.8); NEUTROPHILS % (AUTO) 59 % (42-75); PLATELET COUNT 158 x10^3/uL (130-400); RED BLOOD COUNT 3.72 x10^6/uL (3.82-5.3); RED CELL DISTRIBUTION WIDTH 14.8 % (9.6-15.2)
[2018-09-30] MEDS: HYDROcodone/APAP 5/325 TABLET PO PRN (17:01)
[2018-09-30] MEDS ORDERED: SODIUM CHLORIDE 0.9% 300 ML IV ONE (19:00)
[2018-09-30 20:14] VITALS: BP 110/54
[2018-09-30 20:21] VITALS: BP 101/62
[2018-09-30 21:10] VITALS: BP 106/62
[2018-09-30] MEDS: SODIUM CHLORIDE FLUSH 10ML SYR IVF SCH (21:17)
[2018-09-30] MEDS: ATORVASTATIN 20 MG TABLET PO SCH (21:18)
[2018-09-30] MEDS: CEFAZOLIN 1,000 MG in SODIUM CHLORIDE 0.9% 50 ML IVPB SCH (21:18)
[2018-09-30] MEDS: ACETAMINOPHEN 325 MG TABLET PO PRN (21:18)
[2018-09-30 21:58] VITALS: BP 111/65
[2018-09-30] MEDS: DIGOXIN 0.125 MG TABLET PO SCH (22:11)
[2018-09-30] MEDS ORDERED: SODIUM CHLORIDE 0.9% 1,000 ML IV SCH ×2 (22:30)
[2018-10-01] MEDS: SODIUM CHLORIDE 0.9% 1,000 ML IV SCH (00:39)
[2018-10-01 01:01] VITALS: BP 113/62
[2018-10-01] MEDS: ACETAMINOPHEN 325 MG TABLET PO PRN ×2 (03:20→10:31)
[2018-10-01 05:39] LABS: BASOPHILS # (AUTO) 0.03 x10^3/uL (0-0.1); BASOPHILS % (AUTO) 0 % (0-1); EOSINOPHILS # (AUTO) 0.05 x10^3/uL (0-0.4); EOSINOPHILS % (AUTO) 1 % (1-7); LYMPHOCYTES # (AUTO) 0.87 x10^3/uL (1-3.4); LYMPHOCYTES % (AUTO) 10 % (22-44); MD NO; MEAN CORPUSCULAR HEMOGLOBIN 30.4 pg (27.0-34.8); MEAN CORPUSCULAR HGB CONC 32.9 g/dL (32.4-35.8); MEAN CORPUSCULAR VOLUME 92.4 fL (80-100); MEAN PLATELET VOLUME 9.2 fL (7.4-10.4); MONOCYTES # (AUTO) 0.32 x10^3/uL (0.2-0.8); MONOCYTES % (AUTO) 4 % (2-9); NEUTROPHILS # (AUTO) 7.24 x10^3/uL (1.8-6.8); NEUTROPHILS % (AUTO) 85 % (42-75); PLATELET COUNT 151 x10^3/uL (130-400); RED BLOOD COUNT 3.93 x10^6/uL (3.82-5.3); RED CELL DISTRIBUTION WIDTH 14.7 % (9.6-15.2)
[2018-10-01] MEDS: CEFAZOLIN 1,000 MG in SODIUM CHLORIDE 0.9% 50 ML IVPB SCH (05:40)
[2018-10-01 07:30] VITALS: BP 127/75
[2018-10-01] MEDS: ISOSORBIDE MONONITRATE ER 30 MG TABLET PO SCH (08:47)
[2018-10-01] MEDS: HYDROcodone/APAP 5/325 TABLET PO PRN ×3 (08:47→18:42)
[2018-10-01] MEDS: SODIUM CHLORIDE FLUSH 10ML SYR IVF SCH ×2 (08:48→21:12)
[2018-10-01] MEDS: FERROUS SULFATE 325 MG TABLET PO SCH (08:48)
[2018-10-01] MEDS ORDERED: KETOROLAC 30 MG/1 ML IVPush ONE (13:00)
[2018-10-01 13:15] VITALS: BP 111/65
[2018-10-01 13:24] VITALS: BP 103/60
[2018-10-01 19:03] VITALS: BP 92/56
[2018-10-01 21:07] VITALS: BP 116/65
[2018-10-01] MEDS: DIGOXIN 0.125 MG TABLET PO SCH (21:12)
[2018-10-01] MEDS: ATORVASTATIN 20 MG TABLET PO SCH (21:12)
[2018-10-02 01:24] VITALS: BP 123/71
[2018-10-02] MEDS: HYDROcodone/APAP 5/325 TABLET PO PRN ×3 (02:03→18:32)
[2018-10-02 07:11] VITALS: BP 136/77
[2018-10-02] MEDS: FERROUS SULFATE 325 MG TABLET PO SCH (08:00)
[2018-10-02] MEDS: ISOSORBIDE MONONITRATE ER 30 MG TABLET PO SCH (08:48)
[2018-10-02] MEDS: SODIUM CHLORIDE FLUSH 10ML SYR IVF SCH ×2 (08:49→21:40)
[2018-10-02] MEDS: ACETAMINOPHEN 325 MG TABLET PO PRN (09:02)
[2018-10-02 13:02] VITALS: BP 91/55
[2018-10-02] MEDS ORDERED: LIDOCAINE-MPF 1%, 5ML ONE ×2 (16:26→16:42)
[2018-10-02] MEDS ORDERED: FENTANYL PF 100 MCG/2ML ONE ×2 (16:27→16:51)
[2018-10-02] MEDS ORDERED: DIPHENHYDRAMINE 50 MG/ML, 1ML ONE (16:51)
[2018-10-02 19:27] VITALS: BP 106/68
[2018-10-02] MEDS: DIGOXIN 0.125 MG TABLET PO SCH (21:40)
[2018-10-02] MEDS: ATORVASTATIN 20 MG TABLET PO SCH (21:40)
[2018-10-03 00:49] VITALS: BP 113/70
[2018-10-03] MEDS: HYDROcodone/APAP 5/325 TABLET PO PRN ×5 (00:51→20:11)
[2018-10-03 08:30] VITALS: BP 110/65
[2018-10-03] MEDS: ISOSORBIDE MONONITRATE ER 30 MG TABLET PO SCH (10:41)
[2018-10-03] MEDS: FERROUS SULFATE 325 MG TABLET PO SCH (10:41)
[2018-10-03] MEDS: SODIUM CHLORIDE FLUSH 10ML SYR IVF SCH ×2 (10:43→20:11)
[2018-10-03 13:40] VITALS: BP 107/65
[2018-10-03 19:59] VITALS: BP 92/65
[2018-10-03] MEDS: DIGOXIN 0.125 MG TABLET PO SCH (20:10)
[2018-10-03] MEDS: ATORVASTATIN 20 MG TABLET PO SCH (20:10)
[2018-10-04] MEDS: HYDROcodone/APAP 5/325 TABLET PO PRN ×5 (00:47→21:08)
[2018-10-04 00:53] VITALS: BP 136/67
[2018-10-04 07:58] VITALS: BP_SYST 128; BP_SYST 154; BP_DIAS 55; BP_DIAS 67
[2018-10-04] MEDS: SODIUM CHLORIDE FLUSH 10ML SYR IVF SCH ×2 (09:10→21:13)
[2018-10-04] MEDS: FERROUS SULFATE 325 MG TABLET PO SCH (09:11)
[2018-10-04] MEDS: MAGNESIUM HYDROXIDE 8%, 30ML UDC PO PRN (09:11)
[2018-10-04] MEDS: ISOSORBIDE MONONITRATE ER 30 MG TABLET PO SCH (09:11)
[2018-10-04 12:47] LABS: ANION GAP 1 mmol/L (5-15); CALCIUM 8.1 mg/dL (8.5-10.1); CHLORIDE 104 mmol/L (98-107); CREATININE 0.69 mg/dL (0.55-1.02)
[2018-10-04 13:55] VITALS: BP 106/68
[2018-10-04] MEDS ORDERED: FUROSEMIDE 20 MG/2 ML IV ONE (15:30)
[2018-10-04 17:24] VITALS: BP 99/62
[2018-10-04 17:50] VITALS: BP 90/62
[2018-10-04] MEDS ORDERED: ALBUMIN HUMAN 25% 50 ML IV ONE (18:00)
[2018-10-04 19:55] VITALS: BP 112/68
[2018-10-04] MEDS ORDERED: FUROSEMIDE 20 MG/2 ML ONE (20:43)
[2018-10-04] MEDS: ATORVASTATIN 20 MG TABLET PO SCH (21:09)
[2018-10-04] MEDS: DIGOXIN 0.125 MG TABLET PO SCH (21:10)
[2018-10-05 01:18] VITALS: BP 122/69
[2018-10-05] MEDS: HYDROcodone/APAP 5/325 TABLET PO PRN ×4 (04:54→23:34)
[2018-10-05 07:19] VITALS: BP 93/59
[2018-10-05 09:55] VITALS: BP 95/52
[2018-10-05] MEDS: FERROUS SULFATE 325 MG TABLET PO SCH (09:56)
[2018-10-05] MEDS: SODIUM CHLORIDE FLUSH 10ML SYR IVF SCH ×2 (09:57→20:44)
[2018-10-05] MEDS: ISOSORBIDE MONONITRATE ER 30 MG TABLET PO SCH (10:23)
[2018-10-05] MEDS ORDERED: BISACODYL 10 MG SUPP PR PRN (10:30)
[2018-10-05] MEDS: MAGNESIUM HYDROXIDE 8%, 30ML UDC PO PRN (10:35)
[2018-10-05 12:26] VITALS: BP 106/64
[2018-10-05] MEDS ORDERED: FUROSEMIDE 20 MG/2 ML IV ONE (15:00)
[2018-10-05 20:40] VITALS: BP 116/79
[2018-10-05] MEDS: ATORVASTATIN 20 MG TABLET PO SCH (20:44)
[2018-10-05] MEDS: DIGOXIN 0.125 MG TABLET PO SCH (20:44)
[2018-10-06 01:25] VITALS: BP 113/61
[2018-10-06] MEDS: HYDROcodone/APAP 5/325 TABLET PO PRN ×3 (05:06→23:23)
[2018-10-06 08:40] VITALS: BP 106/67
[2018-10-06] MEDS: FERROUS SULFATE 325 MG TABLET PO SCH (09:16)
[2018-10-06] MEDS: SODIUM CHLORIDE FLUSH 10ML SYR IVF SCH ×2 (09:18→21:04)
[2018-10-06 15:27] VITALS: BP 130/83
[2018-10-06 18:36] VITALS: BP 115/72
[2018-10-06] MEDS: ACETAMINOPHEN 325 MG TABLET PO PRN (21:03)
[2018-10-06] MEDS: DIGOXIN 0.125 MG TABLET PO SCH (21:03)
[2018-10-06] MEDS: ATORVASTATIN 20 MG TABLET PO SCH (21:03)
[2018-10-06 21:06] VITALS: BP 137/82
[2018-10-07 01:45] VITALS: BP 114/71
[2018-10-07] MEDS: HYDROcodone/APAP 5/325 TABLET PO PRN ×2 (06:44→11:48)
[2018-10-07] MEDS: FERROUS SULFATE 325 MG TABLET PO SCH (08:18)
[2018-10-07] MEDS: SODIUM CHLORIDE FLUSH 10ML SYR IVF SCH (08:18)
[2018-10-07] MEDS ORDERED: HYDR-3240 PO (08:30)
[2018-10-07 09:00] VITALS: BP 114/68
== END 2018-10-07 13:47 | disposition home or self-care (01) | DRG 314 ==
LOC: CACL 08:33 → 5SO 16:21 → CACL 23:32 → 5SO 23:39 → DCLOUNGE 10-07 13:25
PROVIDERS: ADMIT Internal Medicine Cardiovascular Disease; ATTEND Internal Medicine Cardiovascular Disease
PROC: B51N1ZA Fluoroscopy of Left Upper Extremity Veins using Low Osmolar Contrast, Guidance (ICD-10-PCS; principal; 2018-09-30 13:00)
PROC: 0W9B30Z Drainage of Left Pleural Cavity with Drainage Device, Percutaneous Approach (ICD-10-PCS; 2018-10-02)
DX: T82.118A Breakdown (mechanical) of other cardiac electronic device, initial encounter (principal); J96.20 Acute and chronic respiratory failure, unspecified whether with hypoxia or hypercapnia; E43 Unspecified severe protein-calorie malnutrition; S25.3 Injury of innominate or subclavian vein; D68.69 Other thrombophilia; J93.83 Other pneumothorax; Z68.1 Body mass index [BMI] 19.9 or less, adult; I25.10 Atherosclerotic heart disease of native coronary artery without angina pectoris; J44.9 Chronic obstructive pulmonary disease, unspecified; I10 Essential (primary) hypertension; G47.33 Obstructive sleep apnea (adult) (pediatric); Y83.8 Other surgical procedures as the cause of abnormal reaction of the patient, or of later complication, without mention of misadventure at the time of the procedure; I08.2 Rheumatic disorders of both aortic and tricuspid valves; Z77.22 Contact with and (suspected) exposure to environmental tobacco smoke (acute) (chronic); I48.0 Paroxysmal atrial fibrillation; Z53.8 Procedure and treatment not carried out for other reasons; Z79.01 Long term (current) use of anticoagulants; Z87.891 Personal history of nicotine dependence; Z95.0 Presence of cardiac pacemaker; Y92.89 Other specified places as the place of occurrence of the external cause
CPT/HCPCS: 32557; 33216; 33222; 36005; 36415; 71045; 71046; 80048; 80162; 85025; 93306; 93308; C1769; C1779; C1887; G0378; J0690; J1885; J2250; J2704; J3010; J3490; P9047; C1729; J1200; J1940; J7030; J7040; Q9967

== ENCOUNTER → 2018-12-23 | Outpatient (CLI) | payer MEDICARE ==
[~2018-12-23] MED LIST changes: +HYDR-3240 PO; +SENN-177 PO; -SENN1TAB8 PO
== END | disposition home or self-care (01) ==
LOC: CFH 15:44
PROVIDERS: ATTEND Registered Nurse
DX: J43.9 Emphysema, unspecified (principal); M43.8X4 Other specified deforming dorsopathies, thoracic region
CPT/HCPCS: 71250

== ENCOUNTER → 2019-03-03 | Outpatient (CLI) | payer MEDICARE | END | disposition home or self-care (01) | LOC: CFH 08:57 | PROVIDERS: ATTEND Registered Nurse | DX: Z12.2 Encounter for screening for malignant neoplasm of respiratory organs (principal); J43.2 Centrilobular emphysema; M43.9 Deforming dorsopathy, unspecified; Z87.891 Personal history of nicotine dependence | CPT/HCPCS: G0297 ==

== ENCOUNTER 2019-05-21 07:20 | Outpatient (CLI) | payer MEDICARE ==
[~2019-05-21 07:20] MED LIST changes: -NITR0.4T SL; +NITR0.4T41 SL
[2019-05-21] MEDS ORDERED: FUROSEMIDE 20 MG/2 ML ONE ×3 (07:42→12:25)
== END 2019-05-21 23:59 | disposition home or self-care (01) ==
LOC: PETCFH 07:20
PROVIDERS: ATTEND Physician Assistant Surgical
DX: Q62.39 Other obstructive defects of renal pelvis and ureter (principal)
CPT/HCPCS: 78708; A9562; J1940

== ENCOUNTER 2020-01-10 20:44 | Inpatient (IN) | payer MEDICARE ==
[~2020-01-10] VITALS: Ht 154.9 cm; Wt 38.4 kg
[~2020-01-10 20:44] MED LIST changes: -DIGO125T PO; +DIGO125T85 PO
[2020-01-10] MEDS ORDERED: ASPIRIN 325 MG TABLET PO ONE (21:30)
[2020-01-10 21:43] LABS: BASOPHILS # (AUTO) 0.03 x10^3/uL (0-0.1); BASOPHILS % (AUTO) 0 % (0-1); EOSINOPHILS # (AUTO) 0.18 x10^3/uL (0-0.4); EOSINOPHILS % (AUTO) 2 % (1-7); LYMPHOCYTES # (AUTO) 1.35 x10^3/uL (1-3.4); LYMPHOCYTES % (AUTO) 14 % (22-44); MD NO; MEAN CORPUSCULAR VOLUME 93.9 fL (80-100); MEAN PLATELET VOLUME 8.8 fL (7.4-10.4); MONOCYTES # (AUTO) 0.74 x10^3/uL (0.2-0.8); MONOCYTES % (AUTO) 8 % (2-9); NEUTROPHILS # (AUTO) 7.24 x10^3/uL (1.8-6.8); NEUTROPHILS % (AUTO) 76 % (42-75); PLATELET COUNT 248 x10^3/uL (130-400); RED BLOOD COUNT 4.14 x10^6/uL (3.82-5.3); RED CELL DISTRIBUTION WIDTH 14.3 % (9.6-15.2)
[2020-01-10 21:51] LABS: ALANINE AMINOTRANSFERASE 60 U/L (12-78); ALBUMIN 3.2 g/dL (3.4-5.0); ANION GAP 4 mmol/L (5-15); CALCIUM 8.7 mg/dL (8.5-10.1); CHLORIDE 106 mmol/L (98-107); CREATININE 0.84 mg/dL (0.55-1.02)
[2020-01-10] MEDS ORDERED: ASPIRIN 325 MG TABLET ONE (21:51)
[2020-01-10 21:55] LABS: ALKALINE PHOSPHATASE 97 U/L (45-117); TOTAL PROTEIN 6.5 g/dL (6.4-8.2); TROPONIN I < 0.015 ng/mL (0.000-0.045)
--- NOTE | 2020-01-10 21:55 | NUR ---
TASK RN: PT. MEDICATED PER DEC. VS UPDATED. ALL MONIOTRS WERE IN PLACE. 2ND WARM BLANKET PROVIDED PER PT. REQUEST. PT. DENIES OTHER NEEDS. CALL LIGHT IN REACH. ALL SAFETY MEASURES OBSERVED.
[2020-01-10 21:56] LABS: BILIRUBIN,TOTAL < 0.1 mg/dL (0.2-1.0)
[2020-01-10] MEDS ORDERED: TEMAZEPAM 15 MG CAPSULE PO PRN (23:30)
[2020-01-10] MEDS ORDERED: LIDODERM 5% PATCH TD PRN (23:30)
[2020-01-10] MEDS ORDERED: ENALAPRILAT 1.25 MG/ML, 2ML IVPush PRN (23:30)
[2020-01-10] MEDS ORDERED: NITROGLYCERIN 0.4 MG BOTTLE (25 TABS) SL PRN (23:30)
[2020-01-10] MEDS ORDERED: DOCUSATE 100 MG CAPSULE PO PRN (23:30)
[2020-01-10] MEDS ORDERED: ACETAMINOPHEN 325 MG TABLET PO PRN (23:30)
[2020-01-10] MEDS ORDERED: ONDANSETRON ODT 4 MG PO PRN (23:30)
[2020-01-10] MEDS ORDERED: GABAPENTIN 300 MG CAPSULE PO PRN (23:30)
[2020-01-10 23:51] VITALS: BP 137/83
[2020-01-11 03:47] LABS: BASOPHILS # (AUTO) 0.03 x10^3/uL (0-0.1); BASOPHILS % (AUTO) 0 % (0-1); EOSINOPHILS # (AUTO) 0.29 x10^3/uL (0-0.4); EOSINOPHILS % (AUTO) 3 % (1-7); LYMPHOCYTES # (AUTO) 1.73 x10^3/uL (1-3.4); LYMPHOCYTES % (AUTO) 20 % (22-44); MD NO; MEAN CORPUSCULAR HEMOGLOBIN 30.9 pg (27.0-34.8); MEAN CORPUSCULAR HGB CONC 32.8 g/dL (32.4-35.8); MEAN CORPUSCULAR VOLUME 94.2 fL (80-100); MEAN PLATELET VOLUME 8.6 fL (7.4-10.4); MONOCYTES # (AUTO) 0.81 x10^3/uL (0.2-0.8); MONOCYTES % (AUTO) 9 % (2-9); NEUTROPHILS # (AUTO) 6.03 x10^3/uL (1.8-6.8); NEUTROPHILS % (AUTO) 68 % (42-75); PLATELET COUNT 240 x10^3/uL (130-400); RED BLOOD COUNT 3.97 x10^6/uL (3.82-5.3); RED CELL DISTRIBUTION WIDTH 14.3 % (9.6-15.2)
[2020-01-11 03:56] LABS: ANION GAP 3 mmol/L (5-15); CALCIUM 8.5 mg/dL (8.5-10.1); CHLORIDE 109 mmol/L (98-107); CREATININE 0.61 mg/dL (0.55-1.02)
[2020-01-11 04:00] LABS: TROPONIN I < 0.015 ng/mL (0.000-0.045)
[2020-01-11 08:32] VITALS: BP 132/78
[2020-01-11] MEDS ORDERED: DIGOXIN 0.125 MG TABLET PO SCH (09:00)
[2020-01-11] MEDS ORDERED: ISOSORBIDE MONONITRATE ER 30 MG TABLET PO SCH (09:00)
[2020-01-11] MEDS ORDERED: REGADENOSON 0.4 MG/5 ML SYRINGE ONE (09:18)
[2020-01-11 09:39] LABS: TROPONIN I 0.021 ng/mL (0.000-0.045)
[2020-01-11 13:14] VITALS: BP 97/61
[2020-01-11] MEDS ORDERED: RIVAROXABAN 20 MG TABLET PO SCH (17:00)
== END 2020-01-11 18:25 | disposition home or self-care (01) | DRG 313 ==
LOC: ED 22:46 → EDIP 23:51 → 5SO 01-11 00:06
PROVIDERS: ADMIT Family Medicine; ATTEND Internal Medicine
DX: R07.89 Other chest pain (principal); D68.59 Other primary thrombophilia; J96.10 Chronic respiratory failure, unspecified whether with hypoxia or hypercapnia; R64 Cachexia; Z68.1 Body mass index [BMI] 19.9 or less, adult; I48.0 Paroxysmal atrial fibrillation; Z79.01 Long term (current) use of anticoagulants; D69.2 Other nonthrombocytopenic purpura; E78.5 Hyperlipidemia, unspecified; F17.210 Nicotine dependence, cigarettes, uncomplicated; I25.10 Atherosclerotic heart disease of native coronary artery without angina pectoris; I25.2 Old myocardial infarction; I27.20 Pulmonary hypertension, unspecified; I49.3 Ventricular premature depolarization; I73.9 Peripheral vascular disease, unspecified; J44.9 Chronic obstructive pulmonary disease, unspecified; Z82.49 Family history of ischemic heart disease and other diseases of the circulatory system; Z82.5 Family history of asthma and other chronic lower respiratory diseases; Z86.73 Personal history of transient ischemic attack (TIA), and cerebral infarction without residual deficits; Z90.710 Acquired absence of both cervix and uterus; Z98.1 Arthrodesis status; Z99.81 Dependence on supplemental oxygen
CPT/HCPCS: 36415; 71045; 78452; 80048; 80053; 80162; 83880; 84484; 85025; 93005; 93017; 93306; 99285; J2785; A9502; C9898

== ENCOUNTER → 2020-02-17 | Outpatient (CLI) | payer MEDICARE | END | disposition home or self-care (01) | LOC: CFH 13:02 | PROVIDERS: ATTEND Physician Assistant Medical | DX: R91.8 Other nonspecific abnormal finding of lung field (principal); J43.2 Centrilobular emphysema; J18.9 Pneumonia, unspecified organism; I70.0 Atherosclerosis of aorta; M85.88 Other specified disorders of bone density and structure, other site; M48.54XA Collapsed vertebra, not elsewhere classified, thoracic region, initial encounter for fracture; I25.10 Atherosclerotic heart disease of native coronary artery without angina pectoris | CPT/HCPCS: 71250 ==

== ENCOUNTER → 2020-05-18 | Outpatient (CLI) | payer MEDICARE | END | disposition home or self-care (01) | LOC: CFH 10:38 | PROVIDERS: ATTEND Registered Nurse | DX: Z13.820 Encounter for screening for osteoporosis (principal); M81.0 Age-related osteoporosis without current pathological fracture; J44.9 Chronic obstructive pulmonary disease, unspecified; J96.11 Chronic respiratory failure with hypoxia | CPT/HCPCS: 71250; 77080 ==

== ENCOUNTER 2020-09-24 15:42 | Emergency (ER) | payer MEDICARE ==
[~2020-09-24] VITALS: Ht 154.9 cm; Wt 38.0 kg
--- NOTE | 2020-09-24 15:52 | NUR ---
Patient presents with left lower leg wound, LET placed by EDTA. Plan of care discussed. Friend at bedside.
[2020-09-24] MEDS ORDERED: L.E.T SOLUTION TP ONE ×2 (16:00→16:04)
[2020-09-24] MEDS ORDERED: DIPH,PERTUSS(ACELL),TET VAC/PF 0.5 ML IM-VACC ONE ×2 (16:00→16:05)
[2020-09-24] MEDS: PLEASE ENTER HEIGHT AND WEIGHT MC SCH ×2 (16:30→17:33)
--- NOTE | 2020-09-24 16:50 | NUR ---
Melani ARREDONDO at bedside. Wound irrigiated with sterile water and steri strips to be placed by Melani ARREDONDO. Friend at bedside.
--- NOTE | 2020-09-24 17:15 | NUR ---
NON ADHEREANT / TELF AND GAUZE DRESSING APLIED. PT UNDERSTANDS TO NOT GET WET, DO NTO REMOVE DRESSING FOR 3 DAYS UNTIL FOLLOW UP WITH DR. LAYNE
[2020-09-24] MEDS ORDERED: ONDANSETRON ODT 4 MG ONE (17:20)
[2020-09-24] MEDS ORDERED: HYDROcodone/APAP 5/325 TABLET ONE (17:20)
[2020-09-24] MEDS ORDERED: HYDROcodone/APAP 5/325 TABLET PO ONE (17:30)
[2020-09-24] MEDS ORDERED: ONDANSETRON ODT 4 MG PO ONE (17:30)
--- NOTE | 2020-09-24 17:53 | NUR ---
PT W/C OUT. GIVEN EXTRA DRESSINGS IN CASE HER DRESSINGS GET WET. PT FRIEND DRIVING PATIENT HOME. UNDERSTANDS TO FILL RX AND FOLLOW UP WITH DR. LAYNE.
[2020-09-24 17:54] VITALS: BP 110/72
== END 2020-09-24 17:57 | disposition home or self-care (01) ==
LOC: ED 16:42
DX: S81.812A Laceration without foreign body, left lower leg, initial encounter (principal); F17.210 Nicotine dependence, cigarettes, uncomplicated; I48.91 Unspecified atrial fibrillation; J44.9 Chronic obstructive pulmonary disease, unspecified; I25.2 Old myocardial infarction; Z90.710 Acquired absence of both cervix and uterus; Z86.73 Personal history of transient ischemic attack (TIA), and cerebral infarction without residual deficits; W18.30XA Fall on same level, unspecified, initial encounter; Y93.89 Activity, other specified; Y92.69 Other specified industrial and construction area as the place of occurrence of the external cause; Y99.0 Civilian activity done for income or pay
CPT/HCPCS: 12004; 90471; 90715; 99284; 99406; Q0162

== ENCOUNTER 2020-09-26 15:08 | Emergency (ER) | payer MEDICARE, OTHER ==
[~2020-09-26] VITALS: Ht 165.1 cm; Wt 54.0 kg
[2020-09-26 15:17] VITALS: BP 135/87
--- NOTE | 2020-09-26 16:07 | NUR ---
ADVISOR TO COMMAND IN COMBAT: PT AMBULATORY TO ROOM FROM LOBBY
== END 2020-09-26 17:35 | disposition home or self-care (01) ==
LOC: ED 16:58
DX: M79.662 Pain in left lower leg (principal); I48.91 Unspecified atrial fibrillation; I25.2 Old myocardial infarction; J44.9 Chronic obstructive pulmonary disease, unspecified; I25.10 Atherosclerotic heart disease of native coronary artery without angina pectoris; F17.200 Nicotine dependence, unspecified, uncomplicated; Z76.0 Encounter for issue of repeat prescription; Z48.02 Encounter for removal of sutures; Z90.710 Acquired absence of both cervix and uterus; Z86.73 Personal history of transient ischemic attack (TIA), and cerebral infarction without residual deficits
CPT/HCPCS: 99284

== ENCOUNTER → 2020-11-09 | Outpatient (CLI) | payer MEDICARE ==
[~2020-11-09] MED LIST changes: +HYDR-1067 PO; -HYDR-3240 PO
== END | disposition home or self-care (01) ==
LOC: CFH 14:51
PROVIDERS: ATTEND Registered Nurse
DX: R91.1 Solitary pulmonary nodule (principal); J43.2 Centrilobular emphysema
CPT/HCPCS: 71250

== ENCOUNTER → 2020-12-04 | Outpatient (CLI) | payer MEDICARE | END | disposition home or self-care (01) | LOC: CFH 11:48 | PROVIDERS: ATTEND Internal Medicine Cardiovascular Disease | DX: R07.9 Chest pain, unspecified (principal); I10 Essential (primary) hypertension; E78.2 Mixed hyperlipidemia; I25.10 Atherosclerotic heart disease of native coronary artery without angina pectoris; I48.0 Paroxysmal atrial fibrillation; I73.9 Peripheral vascular disease, unspecified; Z95.0 Presence of cardiac pacemaker | CPT/HCPCS: 71046 ==

== ENCOUNTER 2021-01-02 07:16 | Day surgery (SDC) | payer MEDICARE ==
[~2021-01-02] VITALS: Ht 154.9 cm; Wt 36.4 kg
[2021-01-02] MEDS ORDERED: LIDOCAINE 2%, 20ML ONE (07:50)
== END 2021-01-02 09:36 | disposition home or self-care (01) ==
LOC: CACL 07:16
PROVIDERS: ATTEND Internal Medicine Cardiovascular Disease
DX: I48.0 Paroxysmal atrial fibrillation (principal); J44.9 Chronic obstructive pulmonary disease, unspecified; Z79.01 Long term (current) use of anticoagulants; Z79.891 Long term (current) use of opiate analgesic; Z79.899 Other long term (current) drug therapy; Z87.891 Personal history of nicotine dependence; Z95.0 Presence of cardiac pacemaker
CPT/HCPCS: 33285; C1764